=== PATIENT | male | born 1975 | race Caucasian/White ===

== ENCOUNTER → 2025-02-01 | Outpatient (CLI) | payer BC, SELFPAY ==
--- NOTE | 2025-02-01 14:00 | XR_ITS ---
Examination: Ultrasound soft tissue extremity left breast TECHNIQUE: Grayscale sonographic images soft tissue left wrist Date and time: February 01, 2025, 1411 hours INDICATIONS: Left wrist lump outer wrist one month FINDINGS: Solid mass soft tissue left wrist in the ulnar region 1.4 x 0.5 x 1.4 cm IMPRESSION: Solid soft tissue mass left breast at the area concern, recommend MRI wrist follow-up pre and postcontrast to exclude soft tissue tumor mass
== END | disposition home or self-care (01) ==
LOC: CDIM 13:46
PROVIDERS: PCP Registered Nurse Community Health; Referring Provider Otolaryngology Facial Plastic Surgery; Visit Provider Otolaryngology Facial Plastic Surgery
DX: R22.32 Localized swelling, mass and lump, left upper limb (principal)
CPT/HCPCS: 76882

== ENCOUNTER 2025-05-02 16:08 | Emergency (ER) | payer BC, SELFPAY ==
[2025-05-02 16:30] VITALS: BP 176/100; PULSE 97; RESP 18; TEMP 36.6; O2SAT 98; BMI 29.5
--- NOTE | 2025-05-02 16:34 | EKG_ITS ---
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
--- NOTE | 2025-05-02 16:34 | XR_ITS ---
Examination: CT brain head without contrast. 2-D sagittal coronal reconstructions Date and time of exam: May 02, 2025, 1758 hours INDICATIONS: Syncopal episode today, patient fell with injury to the back of the head, head pain headache CTDI: vol (mGy): 55.9 DLP: (mGycm): 1143 Technique: Multiple CT axial sections of the brain have been obtained, 5 mm slice thickness. Contrast has not been administered. 2-D sagittal, coronal reconstructions have been obtained Low dose protocols were performed. One or more of the following dose reduction techniques were used; automated exposure control, adjustment of the mA and/or KV according to patient size, use of iterative reconstruction technique. Findings: No significant ventricular enlargement. Intra-axial or extra-axial hemorrhage density is not seen. No mass effect or midline shift Basal cisterns are not remarkable. Fourth ventricle is midline. Cranial vault intact. Impression: Negative for acute hemorrhage, mass effect or midline shift
--- NOTE | 2025-05-02 16:35 | PD.EDRME ---
Rapid Medical Screening Exam RME Arrival date/time: 05/02/25 16:08 49-year-old male with a history of hypertension presents to the emergency room with a chief complaint of a syncopal episode that occurred 1 hour ago. I have greeted and performed a focused initial assessment of this patient. A comprehensive ED assessment and evaluation of the patient, analysis of all test results, and completion of the medical decision making process will be conducted by additional ED providers. Chief Complaint: Syncope / Near Syncope Time Seen by Provider: 05/02/25 16:12 Vital signs: Vital Signs Temperature 98 F 05/02/25 16:30 Pulse Rate 97 05/02/25 16:30 Respiratory Rate 18 05/02/25 16:30 Blood Pressure 176/100 H 05/02/25 16:30 Pulse Oximetry (%) 98 05/02/25 16:30 Oxygen Delivery Method Room Air 05/02/25 16:30 Vital signs reviewed by provider: Yes Exam: Clear bilateral lung sounds GCS 15 alert and oriented x 3 pupils are PERRLA EOMs are intact Clinical Impression: Syncopal episode/head trauma
--- NOTE | 2025-05-02 16:36 | XR_ITS ---
Examination: CT cervical spine without contrast 2-D sagittal reconstructions 2-D coronal reconstructions 3-D reconstructions. Exam date and time: May 02, 2025, 1758 hours INDICATIONS: Ground-level fall today with injury to the neck, neck pain CTDI:vol (mGy) 18 DLP: (mGycm) 478 Technique: Multiple 2 mm axial sections of the cervical spine have been obtained. The coronal and sagittal reconstructions have been obtained. 3-D reconstructions have been obtained. Low dose protocols were performed. One or more of the following dose reduction techniques were used; automated exposure control, adjustment of the mA and/or KV according to patient size, use of iterative reconstruction technique. Findings: Axial sections demonstrate intact base of the skull. C1 exhibit satisfactory relationship to the odontoid. No acute cervical vertebral body fracture seen. Alignment posterior spinous processes satisfactory. Advanced degenerative disc disease C5-C6 Impression: No acute cervical fracture.
[2025-05-02 16:59] LABS: Basophils # (Auto) 0.1 Thou/mm3 (0.0-0.2); Basophils % (Auto) 1 % (0-2.5); Eosinophils # (Auto) 0.2 Thou/mm3 (0.0-0.5); Eosinophils % (Auto) 1 % (0-10); Hematocrit 54.7 % (41.0-53.0); Hemoglobin 18.2 g/dL (13.5-16.0); Immature Granulocytes Auto 0.06 Thou/mm3 (0.00-0.00); Lymphocytes # (Auto) 2.2 Thou/mm3 (1.0-4.8); Lymphocytes % (Auto) 18 % (10-50); Mean Corpuscular HGB Conc 33.3 g/dl (31.0-37.0); Mean Corpuscular Hemoglobin 28.9 pg (25.0-35.0); Mean Corpuscular Volume 87 fL (80-100); Monocytes # (Auto) 1.2 Thou/mm3 (0.0-0.8); Monocytes % (Auto) 10 % (0-12); Neutrophils # (Auto) 8.4 Thou/mm3 (1.8-7.7); Neutrophils % (Auto) 70 % (37-80); Nucleated Red Blood Cell # 0.00 Thou/mm3 (0.00-0.00); Nucleated Red Blood Cell % 0 /100 WBC (0); Platelet Count 251 Thou/mm3 (140-440); RDW Standard Deviation 45.7 fL (35.1-43.9); Red Blood Count 6.29 Miln/mm3 (4.50-5.90); White Blood Count 12.1 Thou/mm3 (3.8-10.6)
[2025-05-02 17:13] LABS: INR 1.0 (0.9-1.3); Partial Thromboplastin Time 23.4 Seconds (22.0-36.0); Prothrombin Time 10.6 Seconds (9.0-12.2)
[2025-05-02 17:17] LABS: B-Type Natriuretic Peptide < 0 pg/mL (0-100)
--- NOTE | 2025-05-02 17:19 | PC.NURSE ---
CALLED AL IN CT TO WHEN PT WILL BE DONE. HE WILL GET HIM IN ABOUT AN HOUR OR SO.
[2025-05-02 17:22] LABS: Alanine Aminotransferase 25 U/L (10-49); Albumin, Serum 4.7 gm/dL (3.5-5.0); Albumin/Globulin Ratio 1.9 (1.2-2.2); Alkaline Phosphatase 54 U/L (46-116); Anion Gap 9 (7-16); Aspartate Amino Transferase 26 U/L (0-34); BUN/Creatinine Ratio 8 Ratio (12-20); Bilirubin,Total 0.4 mg/dL (0.3-1.2); Blood Urea Nitrogen 9 mg/dL (9-23); Calcium 9.3 mg/dL (8.3-10.6); Calcium (Corrected) 9.3 mg/dL (8.5-10.1); Carbon Dioxide 27.7 mMol/L (20.0-31.0); Chloride 105 mMol/L (98-107); Creatinine (Component) 1.2 mg/dL (0.6-1.3); Estimated Creatinine Clearance 86.2 mL/min (>60); Free T4 (Free Thyroxine) 1.00 ng/dL (0.89-1.76); Globulin 2.5 gm/dL (2.3-3.5); Glucose 121 mg/dL (74-106); Magnesium 1.8 mg/dL (1.6-2.6); Osmolality,Calculated 282 (275-295); Potassium 3.8 mMol/L (3.4-5.1); Sodium 142 mMol/L (136-145); Thyroid Stimulating Hormone 2.33 uIU/mL (0.55-4.78); Total Protein 7.2 gm/dL (5.7-8.2); Troponin I < 0.020 ng/mL (0.0-0.045); eGFR > 60 See Note
[2025-05-02 17:44] LABS: Collection Type, Urine Clean Catch; Squamous Epithelial Cell,Urine 0 /hpf (0-5)
[2025-05-02 17:55] LABS: Bacteria,Urine Rare; Bilirubin,Urine Negative (Negative); Blood,Urine Negative (Negative); Clarity,Urine Clear (Clear/Hazy); Color,Urine Lt-Yellow (Lt Yel-Yel); Culture Indicated,Urine Not Indicated; Glucose, Urine Negative (Negative); Ketones,Urine Negative (Negative); Leukocyte Esterase,Urine Negative (Negative); Nitrite,Urine Negative (Negative); PH,Urine 8.5 (5.0-7.0); Protein,Urine Trace (Neg - Trace); RBC,Urine 4 /hpf (0-3); Specific Gravity,Urine 1.015 (1.001-1.035); Urobilinogen,Urine Negative mg/dL (0.0-1.0); WBC,Urine 3 /hpf (0-5)
[2025-05-02 18:22] LABS: Amphetamine/Methamp Scrn,U Negative (Negative); Barbiturate Screen,Urine Negative (Negative); Benzodiazepines Screen,Urine Negative (Negative); Benzoylecgonine Screen, Ur Negative (Negative); Fentanyl Screen,Urine Negative (Negative); Opiate Screen,Urine Negative (Negative); THC Screen,Urine Negative (Negative)
--- NOTE | 2025-05-02 18:25 | PD.EDADULT ---
ED General RME/HPI General Chief complaint: Syncope / Near Syncope Stated complaint: syncopal episode, lac to head Time Seen by Provider: 05/02/25 16:12 Arrival date/time: 05/02/25 16:08 CC: Syncope HPI standing urinating patient had a warm sensation and then woke up on the floor. This the second episode the first was approximately 2 months ago. Patient's concerned that 1 his hemoconcentration may have caused it and 2, he is on testosterone supplements that may have caused as well. Patient had denies any lightheadedness or dizziness has no premonition other than the warm sensation when this happens. Patient denies any altered mentation persistent vomiting headache shortness of breath or difficulty breathing. The patient states he fell striking an object on the back of his head which is been since then bleeding. RME / HPI RME / HPI narrative: 05/02/25 16:08 49-year-old male with a history of hypertension presents to the emergency room with a chief complaint of a syncopal episode that occurred 1 hour ago. I have greeted and performed a focused initial assessment of this patient. A comprehensive ED assessment and evaluation of the patient, analysis of all test results, and completion of the medical decision making process will be conducted by additional ED providers. Exam: Clear bilateral lung sounds GCS 15 alert and oriented x 3 pupils are PERRLA EOMs are intact Impression: Syncopal episode/head trauma Related Data Allergies Allergy/AdvReac Type Severity Reaction Status Date / Time NKA* Allergy Uncoded 05/02/25 16:08 Review of Systems Review of Systems Narrative Review of Systems: GEN: No fever, no chills, no weight loss EYES: No discharge, no visual changes, no pain HEENT: No ear pain, no congestion, no sore throat PULM: No shortness of breath, no cough, no congestion CV: No chest pain, no dyspnea on exertion, no palpitations GI: No nausea, no vomiting, no diarrhea, no pain, no constipation : No frequency, no urgency, no dysuria MUSC/SKEL: No joint pain, no back pain SKIN: Scalp laceration, no rash PSYCH: No hallucinations, no depression HEME/LYMPH: No easy bleeding or bruising tendencies NEURO: No weakness, no headache Past Medical History Social History SMOKING STATUS: Never smoker ED Exam Narrative Physical exam: [General: Obese not in cot no acute distress Head normocephalic HEENT: Within acceptable limits Neck is supple nontender Chest equal chest rise nontender to palpation Respiratory: Clear to auscultation no wheezes crackles or rubs CV: Rate rhythm is regular no murmurs rubs or clicks Abdomen is distended secondary to body habitus soft nontender no masses positive bowel sounds all 4 quadrants Back: No CVA tenderness no spinous process tenderness from cervical spine thoracic and lumbar spine Skin: 3 cm Y full-thickness laceration to the occiput of the scalp with minimal oozing. Otherwise skin is intact no petechiae rash induration ulceration or crepitus Extremities: Moving all extremity against resistance cap refill less than 2 seconds neurosensory intact Neuro: Awake alert oriented x3 Glascow coma 15 no focal deficits] Course Course Course Narrative: During assessment the patient has no deterioration in neurologic status he is awake alert oriented appropriate for age with his at bedside. Site stable without complication will discharge the patient home with testosterone hemoconcentration and scalp laceration. Quality Measures none Orders Category Date Time Status EKG (ED ONLY) *Do not use* NOW Care 05/02/25 16:[address] cervical spine wo con Stat Exams 05/02/25 16:[address] head/brain wo con Stat Exams 05/02/25 16:34 Completed EKG (ED Only) Stat Exams 05/02/25 16:34 Draft B-Type Natriuretic Peptide Stat Lab 05/02/25 16:51 Completed CBC Stat Lab 05/02/25 16:51 Completed Comprehensive Metabolic Panel Stat Lab 05/02/25 16:51 Completed Drug Screen,Urine Stat Lab 05/02/25 16:55 Completed Free T4 (Free Thyroxine) Stat Lab 05/02/25 16:51 Completed Magnesium Stat Lab 05/02/25 16:51 Completed Partial Thromboplastin Time Stat Lab 05/02/25 16:51 Completed Prothrombin Time with INR Stat Lab 05/02/25 16:51 Completed TSH [Thyroid Stimulating Hormone] Stat Lab 05/02/25 16:51 Completed Troponin I Stat Lab 05/02/25 16:51 Completed Urinalysis, C/S if Indicated Stat Lab 05/02/25 16:55 Completed Vital Signs Vital signs: Vital Signs Temperature 98 F 05/02/25 16:30 Pulse Rate 97 12/16/25 16:30 Respiratory Rate 18 05/02/25 16:30 Blood Pressure 176/100 H 05/02/25 16:30 Pulse Oximetry (%) 98 05/02/25 16:30 Oxygen Delivery Method Room Air 05/02/25 16:30 PROCEDURES: Procedure Comment Patient requested no anesthesia with 4 angie site was closed without proper complication patient tolerated the procedure well. Discharge Plan Plan Patient Disposition: HOME (Self Care) Patient condition on transfer: Stable Prescriptions/Referrals Referrals: Roberto Jackson MD [Physician, Family Practice] - In 1 week No Primary/Family,Physician [Primary Care Provider] - In 1 week Problem List Clinical Impression: Syncope, Laceration of scalp Patient/Caregiver Discharge Instructions Other Activity Instructions:: Keep the scalp laceration site clean and dry, have the angie removed in 7 to 10 days if there are any signs of infection such as redness pus or swelling return to the emergency room for reevaluation. Follow-up with your primary care doctor regarding your test there are supplements. And consider donating blood for your hemoconcentration. Education Materials: ED Laceration: All Closures, ED Fainting, Uncertain Cause Print Language: Czech Stand Alone Forms: [employer] Info., Work/School Release, Patient Portal Info Letter PA/ROB Supervising Physician PA/ROB Supervising Physician: Kirill Dewey ENP [facility] Clinical Information Provided by: patient Medical Records reviewed [facility] Meds/Rx considered, not ordered None Labs/Rad/Tests considered, not ordered None Chronic Illness/Social Conditions which may negatively complicate care or outcome(s)-explain: None or not applicable EKG Interpretation EKG #1: EKG Interpretation: EKG performed at 1646 shows a ventricular rate of 96 WV interval 146 QRS 110 QTc of 399. There is sinus rhythm Labs Labs: interpreted by ok Lab(s) Interpretation(s): CBC shows a mild leukocytosis of 12.1 the patient is hemoconcentrated with a hemoglobin of 18.2 hematocrit of 54.7. No thrombocytopenia. No there are no old values for comparison. Coags within acceptable limits CMP shows no significant electrolyte imbalances other than a mildly elevated glucose of 121. No transaminitis T. bili elevation. Troponin is negative BNP is negative TSH and free T4 were unremarkable. Urine is negative for UTI UDS is negative. Imaging Imaging interpretation: interpreted by ok Imaging Interpretation(s): CT head and C-spine is negative for any acute finding. Medication Administration(s) none Diagnosis Differential Diagnosis ED Complaint MDM: Syncope closed head injury neck fracture
== END 2025-05-02 19:35 | disposition home or self-care (01) ==
PROVIDERS: Emergency Provider Nurse Practitioner Family
DX: S01.01XA Laceration without foreign body of scalp, initial encounter (principal); R55 Syncope and collapse; S19.9XXA Unspecified injury of neck, initial encounter; I49.40 Unspecified premature depolarization; D72.829 Elevated white blood cell count, unspecified; W18.30XA Fall on same level, unspecified, initial encounter; I10 Essential (primary) hypertension
CPT/HCPCS: 12002; 36415; 70450; 72125; 80053; 80307; 81001; 83735; 83880; 84439; 84443; 84484; 85025; 85610; 85730; 93005; 99283

== ENCOUNTER 2025-05-09 11:26 | Emergency (ER) | payer BC, SELFPAY ==
[2025-05-09 11:36] VITALS: BP 160/99; PULSE 74; RESP 18; TEMP 36.6; O2SAT 96
--- NOTE | 2025-05-09 11:37 | PD.EDWOUND ---
ED Wound/Laceration-RME/HPI General Chief Complaint: Wound Recheck / Suture Removal Stated Complaint: remove staple from head Time Seen by Provider: 05/09/25 11:31 Arrival date/time: 05/09/25 11:26 49-year-old male presents to the emergency department today requesting staple removal Limitations: no limitations Related Data Allergies Allergy/AdvReac Type Severity Reaction Status Date / Time NKA* Allergy Uncoded 05/09/25 11:28 Review of Systems Review of Systems Systems Reviewed: All systems reviewed, normal except as documented Constitutional Constitutional: Reports system reviewed and no additional complaints, except as documented, Denies fever(s) and Denies headache(s) Eyes Eyes: Reports system reviewed and no additional complaints, except as documented and Denies blurry vision ENT Ears, Nose, Mouth, and Throat: Reports system reviewed and no additional complaints, except as documented, Denies headache(s), Denies nasal congestion and Denies nasal discharge Cardiovascular Cardiovascular: Reports system reviewed and no additional complaints, except as documented, Denies chest pain and Denies dyspnea Respiratory Respiratory: Reports system reviewed and no additional complaints, except as documented, Denies chest congestion, Denies cough and Denies dyspnea Gastrointestinal Gastrointestinal: Reports system reviewed and no additional complaints, except as documented and Denies abdominal pain Integumentary/Breasts Skin/Breast: Reports system reviewed and no additional complaints, except as documented, Denies rash and Reports wounds (Laceration scalp) Neurologic Neurologic: Reports system reviewed and no additional complaints, except as documented, Reports as per HPI and Denies headache(s) Past Medical History Social History SMOKING STATUS: Never smoker ED Exam General Limitations: Present no limitations General appearance: Present alert and in no apparent distress Expanded Head Exam Head exam physical: Present laceration Head image:  1. Laceration Eye Eye exam: Present normal appearance, PERRL and EOMI ENT ENT exam: Present normal exam, normal oropharynx and mucous membranes moist Neck Neck exam: Present normal inspection, full ROM and trachea midline Chest Chest inspection: Present normal inspection and symmetric chest wall rise Respiratory Respiratory exam: Present normal lung sounds bilaterally Cardiovascular Cardiovascular exam: Present regular rate, normal rhythm and normal heart sounds Abdominal Exam Abdominal exam: Present soft and normal bowel sounds Extremities Exam Extremities exam: Present normal inspection and full ROM Back Exam Back exam: Present normal inspection and full ROM Neurological Exam Neurological exam: Present alert, oriented X3, CN II-XII intact, normal gait and reflexes normal; Absent motor sensory deficit Psychiatric Psychiatric exam: Present normal affect and normal mood Skin Skin exam: Present warm, dry and other (Laceration scalp) Course Quality Measures none Vital Signs Vital signs: Vital Signs Temperature 98 F 05/09/25 11:36 Pulse Rate 74 05/09/25 11:36 Respiratory Rate 18 05/09/25 11:36 Blood Pressure 160/99 H 05/09/25 11:36 Pulse Oximetry (%) 96 05/09/25 11:36 Oxygen Delivery Method Room Air 05/09/25 11:36 O2 saturation 96% room air within normal limits Wound / Laceration MDM Narrative MDM Narrative:: 49-year-old male presents to the emergency department today requesting staple removal On exam patient well-appearing does not appear ill or toxic distress On exam patient has angie in place no evidence of infection Angie removed in their entirety Patient discharged home in no distress to follow-up with primary care doctor in the next 24 to 48 hours and for any worsening symptoms to return to the ER immediately Patient data External records reviewed:: [facility] previous records Clinical information provided by:: patient Social determinants that could affect healthcare access:: none Patient has the following chronic illnesses:: None How is presenting disease/condition affected by chronic disease/condition?: no chronic disease Evaluation data The following diagnostics were reviewed and interpreted by me:: other (specify) (N/A) Lab and/or radiology exams considered but not ordered:: Considered not ordered Interpretation Summary: N/A Medications / Prescriptions Medications or Prescriptions considered but not ordered:: Given Medication administrations:: Given Consultations Consultation(s) initiated? (list below): No Diagnosis Wound Differential Diagnosis: laceration, abrasion and avulsion of skin Most likely diagnosis given after review of the tests above:: Lamar in place Admission Indicated Admission indicated?: not indicated Admission Request Was there a request for admission?: No Disposition Plan Disposition Plan: Discharge Discharge Attestation Discharge Attestation: The patient and all family members were given an opportunity to ask questions and understood the discharge instructions. Discharge instructions specifically effects, indications for sooner follow up or return to the emergency department, and the expected course of current diagnosis. Patient condition: Stable Discharge Plan Plan Patient Disposition: HOME (Self Care) Discharge Disposition comment: stable Problem List Clinical Impression: Removal of staple Patient/Caregiver Discharge Instructions Education Materials: ED Stitches/Staple Removal No ... Additional Instructions: Please follow up with your primary care doctor in the next 24-48hrs for any worsening symptoms return here immediately Print Language: Mozambican Stand Alone Forms: [employer] Award Info., Patient Portal Info Letter PA/PRODUCTION TRUCK DRIVER Supervising Physician PA/PRODUCTION TRUCK DRIVER Supervising Physician: dr medina
== END 2025-05-09 17:30 | disposition home or self-care (01) ==
LOC: SERX 11:58
PROVIDERS: Emergency Provider Nurse Practitioner Primary Care
DX: S01.01XD Laceration without foreign body of scalp, subsequent encounter (principal); X58.XXXD Exposure to other specified factors, subsequent encounter
CPT/HCPCS: 99281